=== PATIENT | female | born 1970 | race Caucasian/White ===

== ENCOUNTER → 2017-06-28 | Outpatient (CLI) | payer MEDICAID ==
[~2017-06-28] MED LIST: ACETAMINOPHEN-H1 TA1 PO; BACTRIM DS 8001 TAB PO; CHILDREN'S CLARI5 MG; LEVOCETIRIZINE D5 MG PO; LOPRESSOR 25MG.25 MG PO; MAXZIDE 25 MG-31 TAB PO; MEDROL 4MG. DOSE4 MG PO; NAPROXEN SODIU500 MG PO; OXYBUTYNIN5 MG PO; WELLBUTRIN SR150 M1; XYZAL5 MG PO
--- NOTE | 2017-06-28 17:36 | RADIOLOGY REPORT PS360 ---
FOOT-RT-3 VIEWS HISTORY: RIGHT FOOT PAIN right foot pain Patient Age: 46 years: Female Ordering Physician: ONUR HENDRICKS TECHNIQUE: 3 views right foot COMPARISON :08/31/2016 FINDINGS. Bilateral film best demonstrates Diffuse soft tissue swelling most evident along the dorsal aspect of forefoot . No fracture evident. Osseous structures intact. Mild degenerative changes first MTP joint. Slight narrowing minimal sclerosis with small subchondral cystic feature at medial base of first proximal phalanx scant Stan valgus.. Plantar calcaneal spur again noted measuring 8.5 mm length. Also note minimal spurring at insertion of Achilles tendon. Midfoot and metatarsals appear stable. Only question there may be some very subtle scattered cystic changes at tarsals and perhaps base of metatarsals particularly base of third metatarsal IMPRESSION: No fracture or acute osseous findings. Mild degenerative changes first MTP joint. . Plantar calcaneal spur.
--- NOTE | 2017-06-28 17:38 | RADIOLOGY REPORT PS360 ---
LUMBAR SPINE 5 VIEWS HISTORY: ACUTE RT SIDED LOW BACK PAIN Patient Age: 46 years: Female Ordering Physician: ONUR HENDRICKS TECHNIQUE: Five-view lumbar spine series. COMPARISON : No relevant previous studies FINDINGS Lumbar vertebral bodies intact with no fracture nor subluxation. Disc spaces fairly well maintained throughout. Pedicles, transverse processes intact. SI joints intact.. Cholecystectomy noted. Mild degenerative facet changes L5/S1 noted IMPRESSION: Lumbar spine intact. . Mild degenerative facet changes L5/S1 noted bilateral.
--- NOTE | 2017-06-29 08:32 | RADIOLOGY REPORT PS360 ---
HIP RT 2-3V W/PELVIS IF PERFOR HISTORY: RIGHT HIP PAIN Patient Age: 46 years: Female Ordering Physician: ONUR HENDRICKS AP frog-leg view right hip with AP pelvis TECHNIQUE: COMPARISON :CT lower extremity, on 06/03/2013 included pelvis and right hip. FINDINGS Right femoral head and neck appear intact with no fracture nor dislocation. . The right hip joint space is fairly well maintained but does demonstrate scant borderline narrowing of superior right hip joint space compared to the left on close inspection.. With this there is some minor trace hypertrophic lipping at the superior rim of acetabulum.. These features reflecting mild degenerative changes.. There is a focal ovoid dystrophic calcification just lateral to the superior acetabulum. 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 Suspect rectus femoris calcification near its attachment. This could reflect old injury or inflammation here Left hip appears intact as space well maintained. Mild dystrophic calcifications of the greater tuberosity on left AP osseous pelvis appears intact. Postsurgical changes along the right pelvic sidewall. IMPRESSION....... . No acute findings.. Scant degenerative changes at right hip more so than left. Osseous pelvis intact Incidental note a ovoid calcification lateral to the superior acetabulum. May reflect long-standing rectus femoris dystrophic calcification from old injury or inflammation.
== END ==
LOC: RAD 16:42
DX: M25.551 Pain in right hip (principal); M54.5 Low back pain; M79.671 Pain in right foot

== ENCOUNTER 2017-08-18 18:53 | Emergency (ER) | payer MEDICAID ==
[~2017-08-18] VITALS: Ht 165.1 cm; Wt 136.1 kg
[~2017-08-18 18:53] MED LIST changes: -WELLBUTRIN SR150 M1; +WELLBUTRIN SR150 M1 PO
--- NOTE | 2017-08-18 19:13 | Emergency Room Report ---
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 Clinical Suspician of Infection? Mental Status: Sepsis Risk: Have you (or family members/close friends) recently traveled outside the [place]? If Yes, where/when: Have you had exposure to infectious disease within the past month? TB? Other? Specify: Source patient, RN notes reviewed Exam Limitations no limitations Comment Pt comes to the ED with complaints of pain in the center of her chest that radiates through to her back since last night. Hurts worse to eat or to take a deep breath. History of Acid reflux and also history of a herniated disc at C6- 7 that showed up on an MRI about 4 to 5 years ago. It was recommended she have surgery at that time but she has not and says she can usually manage that pain with Ibuprofen and Ice. No hisotry of heart diseae and she does not smoke and rarely drinks Cardiac Chest Pain Chest pain indicative of cardiac No ALLERGIES Coded Allergies: amoxicillin (From AUGMENTIN) (Mild, 10/09/15) clavulanic acid (From AUGMENTIN) (Mild, 10/09/15) Home Medications Reported Medications Metoprolol Tartrate (Lopressor) 12.5 MG PO BID #60 OXYBUTYNIN CHLORIDE (Oxybutynin 5MG Tab) 5 MG PO DAILY HYDROCODONE/ACETAMINOPHEN (Hydrocodon-Acetaminophn 10-325) 1 TAB PO PRN PRN PAIN #60 Bupropion HCl (Wellbutrin Sr) 300 mg PO DAILY Loratadine (Claritin 10MG) 10 MG PO DAILY #30 History Medical History General CAD? No Angina: No ME: No Hypertension? Yes Hyperlipidemia? No CHF? No DVT? Yes PE? No COPD? No Asthma? Yes Anemia? No GERD? Yes Gastric ulcers? No GI Bleed? No Hernia? Yes Thyroid Problems? No Hypothyroidism? No CVA? No Seizures? No Diabetes? No Renal Insuffiency? No End Stage Renal Disease? No UTI? No Stones? No BPH? No GB Disease: Yes Nephritic Syndrome? No Asplenia? No Hepatitis? No Sickle Cell Disease? No Arthritis? No Migraines? No Cataracts? No Glaucoma? No MRSA? No HIV? No TB? No Anxiety? No Depression? No Cancer? No Immunization Hx DT/Tetanus 1-4 Years Ago Surgical Hx Previous Surgery?Y [place] GERD PARTIAL HYSTERECTOMY Family History Family Hx Diabetes Yes CAD Yes Hypertension Yes Hyperlipidemia No Cancer No TB No Social History Smoking Hx Packs/day < 1 Pack Alcohol Alcohol: No Review of Systems All Other Systems Reviewed and Negative Constitutional see HPI Respiratory see HPI Cardiovascular see HPI Musculoskeletal see HPI Psychiatric/Neurological see HPI Physical Exam Vital Signs Vital Signs Date Time Temp Pulse Resp B/P Pulse O2 O2 Flow FiO2 Ox Delivery Rate 08/18 2007 71 20 144/78 98 08/18 1909 98.0 68 20 155/77 97 General Appearance normal appearance, mild distress, obese Respiratory Status No: respiratory distress. Lung Sounds bilateral: normal breath sounds. 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 No Results/Orders Laboratory Tests 08/18/171924: Sodium Pending, Potassium Pending, Chloride Pending, Carbon Dioxide Pending, BUN Pending, Creatinine Pending, Estimated Creat Clear Pending, Estimated GFR (MDRD) Pending, Glucose Pending, Calcium Pending, Total Bilirubin Pending, AST Pending, ALT Pending, Alkaline Phosphatase Pending, Creatine Kinase Pending, CK-MB (CK-2) Rel Index Pending, CK and CKMB Interp Pending, Troponin I Pending, Total Protein Pending, Albumin Pending, Globulin Pending, Albumin/Globulin Ratio Pending, Amylase Pending, Lipase Pending, WBC 8.3, RBC 4.25, Hgb 11.6 L, Hct 35.8 L, MCV 84.2, RDW 13.7, Plt Count 258, MPV 8.2, Gran % 68.9, Gran # 5.7, Lymphocytes % 22.4, Monocytes % 6.5, Eosinophils % 1.7, Basophils % 0.5, Lymphocytes # 1.9, Monocytes # 0.5, Eosinophils # 0.1, Basophils # 0.1, PUBS MCHC 32.3, MCH 27.2 Current Medication Orders Sig/Nathaniel Start time Last Medication Dose Route Stop Time Status Admin Pantoprazole Sodium 0 .STK-MED ONE 08/18 1931 DC IV Sodium Chloride 0 .STK-MED ONE 08/18 1931 DC IV Sodium Chloride 1,000 ML .STK-MED ONE 08/18 1931 DC IV Multi-Ingredient GI 60 ML ONCE ONE 08/18 1930 DC 08/18 Drug PO 08/18 Multi-Ingredient GI 0 .STK-MED ONE 08/18 1930 DC Drug PO Pantoprazole Sodium 40 MG ONCE ONE 08/18 1930 DC 08/18 IV 08/18 1931 194 Sodium Chloride 10 ML PRN PRN 08/18 1930 AC IV 08/19 192 Sodium Chloride 1,000 ML .Q1H1M 08/18 1930 AC 08/18 IV 08/18 Sodium Chloride 10 ML PRN PRN 08/18 1930 AC IV 08/19 192 Sodium Chloride 10 ML ONCE ONE 08/18 1930 DC 08/18 IV 08/18 Orders Procedure Date/time Status ELECTROCARDIOGRAM REQUEST 08/18 1926 Active IV SALINE LOCK 08/18 1926 Active LIPASE 08/18 1926 Active CBC WITH AUTO DIFF 08/18 1926 Complete CARDIAC ENZYMES 08/18 1926 Active CHEM 12 PROFILE 08/18 1926 Active AMYLASE 08/18 1926 Active CM/EKG CM/EKG EKG NSR, Poor R wave progression but no acute changes Departure Departure Time of Disposition 2006 Disposition DC Home or Self Care(routine) Clinical Impression Primary Impression: Acid reflux disease Qualifiers: Esophagitis presence: with esophagitis Qualified Code: K21.0 - Gastro-esophageal reflux disease with esophagitis Secondary Impressions: Atypical chest pain, Cervicalgia Condition STABLE Referrals Coty CABAN,Niles Odom (Family): 3 Days-Call Office Patient Instructions Chronic Neck Pain, DI for Atypical Chest Pain, DI for Gastroesophageal Reflux Disease (GERD), DI for Neck Pain, Gastroesophageal Reflux Disease (Alternative Therapy), GERD Diet, Neck Pain (Alternative Therapy) Additional Instructions Alternate ice and heat and followup with PCP to discuss other modalities like Physical Therapy and you may need to get a new MRI to evaluate for further problems. For the acid reflux, elevate HOB on 8" blocks to lay at an incline rather than laying flat. Use GI meds as directed and also can alternate Maalox and Mylanta every 4 hours to help with the reflux. Followup with Neurosurgeon for re-evaluation of your diagnosis of Cervical disc herniation Discharge Counseling Counseled pt/family regarding diagnosis, test results, medications/RX, home care, follow up needs Prescriptions Current Visit Scripts Omeprazole (Omeprazole 20MG) 20 MG PO DAILY #30 ECC Prednisone (Prednisone 5MG) 5 MG PO DIRECTED #39 TAB 6 tabs QD X 3D 4 tabs QD X 3D 2 tabs QD X 3D 1 tab QD X 3D Methocarbamol (Robaxin 750MG) 750 MG PO BID #60 TAB ED Critical Care Critical Care No If Critical Care minutes are documented, the time involved in the performance of seperately reportable procedures was not counted toward critical care time documented. I directly delivered medical care to this critically ill and/or injured patient. Timely evaluation and treatment was necessary to address the significant organ system(s) dysfunction present in this patient. at 2014
--- OUTSIDE RECORDS SUMMARY | 2017-08-18 19:18 | External Medical Summary Rpt | CCD ---
Author Author , RADHA GARCIA Address Unknown Phone [email or web address] Purpose Continuity of Care Document - through 2016 Problems Code Diagnosis DOS Provider Status J40 BRONCHITIS, NOT SPECIFIED ACUTE OR CHRONIC M25.569 PAIN IN UNSPECIFIED KNEE
--- OUTSIDE RECORDS SUMMARY | 2017-08-18 19:18 | External Medical Summary Rpt | CCD ---
Author Author , RADHA GARCIA Address Unknown Phone [email or web address] Purpose Continuity of Care Document - through 2016 Problems Code Diagnosis DOS Provider Status J40 BRONCHITIS, NOT SPECIFIED ACUTE OR CHRONIC M25.569 PAIN IN UNSPECIFIED KNEE
--- OUTSIDE RECORDS SUMMARY | 2017-08-18 19:19 | External Medical Summary Rpt | CCD ---
Author Author , RADHA Organization [facility] Address Unknown Phone [email or web address] Immunization Name Date Rout CVX Reac Dose Comm Prov Is Faci e tion ent ider Refu lity Give sed n Tdap 06-2 Intr 115 0.50 Hist YANG No H149 , 0-20 amus mL oric Adso 16 cula al APRI rbed r Info L rmat ion - Sour ce Unsp ecif ied
--- OUTSIDE RECORDS SUMMARY | 2017-08-18 19:19 | External Medical Summary Rpt | CCD ---
Author Author [employer] Organization [employer] Address Unknown Phone Unavailable Purpose Continuity of Care Document - through 2016
--- OUTSIDE RECORDS SUMMARY | 2017-08-18 19:19 | External Medical Summary Rpt | CCD ---
Author Author , RADHA Organization [employer] Address Unknown Phone [email or web address] Immunization Name Date Rout CVX Reac Dose Comm Prov Is Faci e tion ent ider Refu lity Give sed n Tdap 06-2 Intr 115 0.50 Hist YANG No H149 , 0-20 amus mL oric Adso 16 cula al APRI rbed r Info L rmat ion - Sour ce Unsp ecif ied
--- OUTSIDE RECORDS SUMMARY | 2017-08-18 19:20 | External Medical Summary Rpt ---
Author Author RADHA Espinoza, RADHA Espinoza Organization [employer] Address Unknown Phone Unavailable
[2017-08-18] MEDS ORDERED: CLARITIN 10MG T10 MG PO (19:22)
[2017-08-18 19:36] LABS: HEMOGLOBIN 11.6 g/dL (12.2-16.2); LYMPH # 1.9 K/mm3 (0.7-4.5); LYMPH % 22.4 % (10-50.0)
--- NOTE | 2017-08-18 20:06 | RADIOLOGY REPORT PS360 ---
CHEST(2 VIEWS-NOT PORTABLE) HISTORY: chest pain ORDERING PHYSICIAN: Emma Gould MD PATIENT AGE: 46 years COMPARISON: 10/09/2015 FINDINGS: The cardiomediastinal silhouette and pulmonary vascularity are within normal limits. The lungs are clear without infiltrates, suspicious nodules, or pleural effusions. No acute bony abnormalities. IMPRESSION: Negative chest, no acute finding
[2017-08-18 20:10] LABS: BUN 17 mg/dL (7-18)
[2017-08-18] MEDS ORDERED: ROBAXIN-750750 MG PO (20:14)
[2017-08-18] MEDS ORDERED: OMEPRAZOLE20 MG PO (20:14)
[2017-08-18] MEDS ORDERED: PREDNISONE 5MG.5 MG PO (20:14)
[2017-08-18 20:17] LABS: GFR (ESTIMATED) 68 ML/MIN (59-)
[2017-08-18 20:56] VITALS: BP 143/87
== END 2017-08-18 20:57 | disposition home or self-care (01) ==
LOC: ER 18:53
PROVIDERS: General Practice
DX: K21.0 Gastro-esophageal reflux disease with esophagitis (principal); R07.89 Other chest pain; J45.909 Unspecified asthma, uncomplicated; I10 Essential (primary) hypertension; Z88.1 Allergy status to other antibiotic agents